=== PATIENT | female | born 1975 | race Two or more races ===

== ENCOUNTER 2023-10-02 03:01 | Emergency (ER) | payer BC ==
[~2023-10-02] VITALS: Ht 172.7 cm; Wt 65.8 kg
[2023-10-02 04:39] VITALS: BP 110/65; O2SAT 98
== END 2023-10-02 04:39 | disposition home or self-care (01) ==
LOC: ER 03:05
DX: R10.12 Left upper quadrant pain (principal); Z98.890 Other specified postprocedural states; Z88.1 Allergy status to other antibiotic agents
CPT/HCPCS: A4606; A4663